=== PATIENT | male | born 1935 | race Caucasian/White ===

== ENCOUNTER 2022-06-17 23:35 | Emergency (ER) | payer MEDICARE, OTHER ==
[~2022-06-17] VITALS: Ht 177.8 cm; Wt 73.6 kg
[2022-06-18 00:01] VITALS: BP 112/87
== END 2022-06-18 00:29 | disposition left against medical advice (07) ==
LOC: ER 23:35
DX: R42 Dizziness and giddiness (principal); J02.9 Acute pharyngitis, unspecified; R53.1 Weakness; Z53.21 Procedure and treatment not carried out due to patient leaving prior to being seen by health care provider
CPT/HCPCS: 93005